=== PATIENT | female | born 1950 | race Caucasian/White ===

== ENCOUNTER 2018-04-01 08:13 | Observation (INO) | payer OTHER, SELFPAY ==
[2018-04-01] VITALS (14 sets, daily range): BP systolic 107–153; BP diastolic 50–94; PULSE 64–94; RESP 14–16; TEMP 36.3–37; O2SAT 96–99; BMI 23.1; BMI 23.2; BMI 23.6
--- NOTE | 2018-04-01 08:24 | RAD_ITS ---
STUDY: X-RAY CHEST REASON FOR EXAM: Female, 67 years old. Numbness and tingling left side of body TECHNIQUE: Single AP portable view of the chest. COMPARISON: None. FINDINGS: EKG lines overlying the chest. The lungs are clear and expanded. There is no demonstrated pleural abnormality. Normal size heart. Normal mediastinum and shey. Normal visualized pulmonary arteries. Normal visualized aortic arch and descending thoracic aorta. Normal visualized thoracic spine. Normal visualized ribs, clavicles, and shoulders. There is no demonstrated abnormality of the visualized soft tissue structures of the upper abdomen. RAD/Chest 1 View IMPRESSION: No acute cardiopulmonary disease. Electronically Signed: Keyon Benavides DO at 9:34 EDT , Service support ,
--- NOTE | 2018-04-01 08:24 | CT_ITS ---
STUDY: CT BRAIN WITHOUT CONTRAST REASON FOR EXAM: Female, 67 years old. Numbness and tingling left side of body RADIATION DOSAGE (If Supplied By Facility): CTDIvol = ( 44.99 ) mGy, DLP = ( 745.49 ) mGycm TECHNIQUE: Transaxial CT imaging of the brain was performed without administration of intravenous contrast material. Sagittal and coronal images reformatted. Individualized dose optimization techniques were used for this CT. COMPARISON: None. FINDINGS: Normal soft tissue structures. Normal calvarium. Normal size ventricles and extra-axial spaces for the patient's age. Normal white matter tracts of the cerebral hemispheres. Normal basal ganglia and thalami. Normal brainstem. Normal cerebellum. There is no intracranial hemorrhage. There are no findings of an acute ischemic infarction. Normal visualized paranasal sinuses. CT/Brain/Head without Contrast IMPRESSION: No acute intracranial process. Electronically Signed: Keyon Benavides DO at 9:42 EDT , Service support ,
--- NOTE | 2018-04-01 08:24 | EKG12_ITS ---
Test Reason : NUMBNESS Blood Pressure : / mmHG Vent. Rate : 071 BPM Atrial Rate : 071 BPM P-R Int : 140 ms QRS Dur : 074 ms QT Int : 392 ms P-R-T Axes : 067 055 046 degrees QTc Int : 425 ms Sinus rhythm with Premature supraventricular complexes Low voltage QRS Borderline ECG Confirmed by ALYSSIA NUNEZ, KAL ([id number]), editor house organ BREANNE JOSUE ([id number]) on 04/05/2018 2:16:10 PM Referred By: TIFFANIE Confirmed By:KAL CADE MD
[2018-04-01 08:48] LABS: Absolute Lymphocyte Count 3.48 X10^3/ul (0.83-4.51); Absolute Neutrophil Count 5.4 X10^3/uL (2.0-7.7); Basophil# 0.04 X10^3/uL; Basophil% 0.4 % (0-1); Eosinophil# 0.31 X10^3/uL; Eosinophils% 3.1 % (0-5); Hematocrit 42.7 % (37-47); Lymphocyte # 3.48 X10^3/ul (4.0); Lymphocyte % 34.3 % (19-41); Mean Corp Hgb Conc 32.8 g/gl (32-36); Mean Corpuscular Hgb 32.3 pg (27.0-32.0); Mean Corpuscular Volume 98.4 fL (81-99); Mean Platelet Vol. 9.4 fl (6.2-12.0); Monocyte# 0.92 X10^3/uL; Monocyte% 9.1 % (0-10); Neutrophil # 5.37 X10^3/uL (2.7-7.7); Neutrophil % 52.9 % (47-70); Platelet Count 364 K/mm3 (150-450); RBC Distribution Width CV 13.9 % (11.6-14.6); Red Blood Count 4.34 M/mm3 (4.2-5.4); White Blood Count 10.1 K/mm3 (4.4-11.0)
[2018-04-01 08:49] LABS: POSITIVE COUNT NO; POSITIVE DIFFERENTIAL NO; POSITIVE MORPHOLOGY NO
[2018-04-01 08:53] LABS: Partial Thromboplast Time 33.2 Seconds (24.1-36.2)
[2018-04-01 09:08] LABS: Anion Gap 7 (5-15); BUN 13 mg/dL (7-18); Calcium,Total 9.2 mg/dL (8.5-10.1); Chloride 109 mmol/L (98-107); EST Glomerular Filtration Rate 59 mL/min (>60); Est Glom Filt Rate - Afr Amer 71 mL/min (>60); Estimated Creatinine Clearance 47.79 ml/min; Glucose 93 mg/dL (74-106); Potassium 4.1 mmol/L (3.5-5.1); Sodium Level 143 mmol/L (136-145)
[2018-04-01 09:22] LABS: International Normalized Ratio 1.1; Prothrombin Time (Protime)PT. 13.9 SECONDS (11.7-14.9)
--- NOTE | 2018-04-01 09:34 | ED.VISSUMM ---
- ER Visit Summary Date of Service: 04/01/18 Chief Complaint: [Numbness and tingling left side of body] History of Present Illness: The patient is a 67 F [presents the emergency department with complaint of numbness and tingling to the left side of her body that she initially noticed yesterday morning. Patient states that it lasted about 20 minutes and then resolved. Patient subsequently had another episode later in the day that was brief where she felt lightheaded and had numbness and tingling to the left side of her body. Patient has had some discomfort in the neck which is been chronic over the years. Patient had mild headache yesterday that has now resolved. Patient denies any falls or head injuries. Patient denies recent illness. This morning patient woke up with numbness to the left side of her body. Patient describes numbness from the top of her head down to her toes on the left side of her body. Patient denies weakness in the extremities. Patient denies difficulty with balance. Patient denies difficulty with vision or speech.] Physical Examination: [HEENT-PERRLA, EOMI. Cranial nerves II through XII grossly intact. TMs clear. Mucous membranes moist. No adenopathy. Cardiovascular-regular rate and rhythm without murmur or ectopy Lungs-clear to auscultation, chest wall stable without crepitus or subcu emphysema Abdomen-normoactive bowel sounds, soft, nontender, no rebound or rigidity, no peritoneal signs. Neuro djjg-uyydlm-bggx and heel villarreal testing within normal limits, negative Romberg, negative pronator drift, fundi benign. NIH stroke scale was a 1 for paresthesias to the left side of the body. Extremities-intact ?4, normal range of motion, normal pulses, atraumatic] Test Results: [EKG obtained on arrival shows sinus rhythm with occasional PACs with a ventricular rate of 71 bpm. CBC with differential showed a white count of 10.1, hemoglobin 14, hematocrit 43, platelets 364. Chemistries unremarkable. Troponin was less than 0.015. Chest x-ray showed no acute disease. CT scan of the brain without contrast read by radiology as] no acute disease process Emergency Department Course and Treatment: [Patient case was discussed with neurologist Dr. Palomo Herrera. Patient will be admitted to hospitalist for further workup and evaluation of her paresthesias. During her stay in the emergency department her symptoms resolved.] Treatment Plan: [Admit] Disposition: [Admit] Impression: [TIA Paresthesias-resolved] This note was generated with [employer] dictation software. It may contain incorrect words, spelling, and punctuation that were not noted in review of the chart prior to signing ED Disposition - Plan for ED Patient: Chief Complaint: Numb/Ting Referrals: Heather Snell MD [Primary Care Provider] -
--- NOTE | 2018-04-01 09:41 | ED.DCSUM_ITS ---
- ER Visit Summary Date of Service: 04/01/18 Chief Complaint: [Numbness and tingling left side of body] History of Present Illness: The patient is a 67 F [presents the emergency department with complaint of numbness and tingling to the left side of her body that she initially noticed yesterday morning. Patient states that it lasted about 20 minutes and then resolved. Patient subsequently had another episode later in the day that was brief where she felt lightheaded and had numbness and tingling to the left side of her body. Patient has had some discomfort in the neck which is been chronic over the years. Patient had mild headache yesterday that has now resolved. Patient denies any falls or head injuries. Patient denies recent illness. This morning patient woke up with numbness to the left side of her body. Patient describes numbness from the top of her head down to her toes on the left side of her body. Patient denies weakness in the extremities. Patient denies difficulty with balance. Patient denies difficulty with vision or speech.] Physical Examination: [HEENT-PERRLA, EOMI. Cranial nerves II through XII grossly intact. TMs clear. Mucous membranes moist. No adenopathy. Cardiovascular-regular rate and rhythm without murmur or ectopy Lungs-clear to auscultation, chest wall stable without crepitus or subcu emphysema Abdomen-normoactive bowel sounds, soft, nontender, no rebound or rigidity, no peritoneal signs. Neuro dijm-gwnpdq-bltm and heel villarreal testing within normal limits, negative Romberg, negative pronator drift, fundi benign. NIH stroke scale was a 1 for paresthesias to the left side of the body. Extremities-intact ?4, normal range of motion, normal pulses, atraumatic] Test Results: [EKG obtained on arrival shows sinus rhythm with occasional PACs with a ventricular rate of 71 bpm. CBC with differential showed a white count of 10.1, hemoglobin 14, hematocrit 43, platelets 364. Chemistries unremarkable. Troponin was less than 0.015. Chest x-ray showed no acute disease. CT scan of the brain without contrast read by radiology as] no acute disease process Emergency Department Course and Treatment: [Patient case was discussed with neurologist Dr. Palomo Herrera. Patient will be admitted to hospitalist for further workup and evaluation of her paresthesias. During her stay in the emergency department her symptoms resolved.] Treatment Plan: [Admit] Disposition: [Admit] Impression: [TIA Paresthesias-resolved] This note was generated with [employer] dictation software. It may contain incorrect words, spelling, and punctuation that were not noted in review of the chart prior to signing ED Disposition - Plan for ED Patient: Chief Complaint: Numb/Ting Referrals: Heather Snell MD [Primary Care Provider] -
--- NOTE | 2018-04-01 10:33 | MRI_ITS ---
STUDY: MRI BRAIN WITHOUT CONTRAST REASON FOR EXAM: Female, 67 years old. CVA with left-sided weakness for 3 days. TECHNIQUE: Standardized multiplanar fat and water weighted pulse sequences were obtained. COMPARISON: None. FINDINGS: Normal size of the ventricles and extra-axial spaces for the patient's age. There are a limited number of small white matter hyperintensities, distributed throughout the deep white matter tracts of the cerebral hemispheres, consistent with mild chronic white matter ischemic changes. There is no evidence for recent intracranial ischemia or other cause of cytotoxic edema on diffusion weighted imaging (DWI). Normal T2* images of the brain without demonstrated susceptibility artifact. There is no demonstrated hemosiderin stain. Normal bilateral basal ganglia. Normal thalami. There is no extra-axial fluid accumulation. Normal flow voids within the major intracranial circulation suggesting patency by spin echo criteria. Normal sella turcica, pituitary gland, infundibular stalk, optic chiasm and hypothalamus. Normal tectal plate and pineal gland. Normal midbrain, sourav and medulla. Normal cerebellum. Normal basal cisterns. Normal bilateral temporal bones. Normal bilateral internal auditory canals. No demonstrated orbital abnormality, within the constraints of a routine brain study. Normal visualized paranasal sinuses. Normal calvarium and skull base. Normal visualized soft tissue structures. Normal visualized upper cervical spine. MRI/Brain without Contrast IMPRESSION: No evidence of acute intracranial bleed, mass or ischemia. Electronically Signed: Jacinto Richardson DO at 13:28 EDT , Service support ,
--- NOTE | 2018-04-01 10:33 | MRI_ITS ---
STUDY: MRA OF THE HEAD WITHOUT CONTRAST REASON FOR EXAM: Female, 67 years old. CVA with left-sided weakness. TECHNIQUE: 3-D vywf-pg-vblalo (TOF) imaging was performed with MIPs. The study was performed unenhanced. COMPARISON: None. FINDINGS: Normal bilateral petrous carotid arteries. Normal right cavernous carotid artery with a normal supraclinoid bifurcation. Normal left cavernous carotid artery with a normal supraclinoid bifurcation. Normal right A1 segments of the anterior cerebral artery. Normal left A1 segments of the anterior cerebral artery. Normal intact anterior communicating artery (ACOM). Normal bilateral A2 segments of the anterior cerebral arteries. Normal right M1 and M2 segments of the middle cerebral arteries, with a normal M1 bifurcation. Normal left M1 and M2 segments of the middle cerebral arteries, with a normal M1 bifurcation. Normal right posterior communicating artery (PCOM). 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 Normal bilateral vertebral arteries. Normal basilar artery with a normal basilar bifurcation. The visualized bilateral superior cerebellar (SCA) arteries are normal. Normal bilateral P1, P2 and visualized P3 segments of the posterior cerebral arteries. There is no demonstrated aneurysm of the [place]. There is no major vessel occlusion or hemodynamically significant stenosis. There is no demonstrated abnormality of the visualized brain. MRI/MRA Head ONLY without Contrast IMPRESSION: No evidence of significant steno-occlusive disease or aneurysm. Electronically Signed: Jacinto Richardson DO at 13:57 EDT , Service support ,
--- NOTE | 2018-04-01 10:33 | MRI_ITS ---
STUDY: MRA NECK WITHOUT CONTRAST REASON FOR EXAM: Female, 67 years old. CVA with left-sided weakness. TECHNIQUE: Source images were obtained, MIPs were performed. The study was performed unenhanced. COMPARISON: None. FINDINGS: RIGHT CAROTID ARTERIES: Normal right common carotid artery (CCA). Normal right common carotid bulb. Normal origin of the right internal carotid (ICA) artery without a hemodynamically significant stenosis. Normal visualized cervical portion of the right internal carotid artery. Normal origin of the right external carotid artery (ECA). LEFT CAROTID ARTERIES: Normal left common carotid artery (CCA). Normal left common carotid bulb. Normal origin of the left internal carotid (ICA) artery without a hemodynamically significant stenosis. Normal visualized cervical portion of the left internal carotid artery. Normal origin of the left external carotid artery (ECA). VERTEBRAL ARTERIES: There is antegrade flow within the bilateral vertebral arteries with a small right vertebral artery, and a dominant left vertebral artery. MRI/MRA Neck without Contrast IMPRESSION: No evidence of significant steno-occlusive disease or aneurysm. Electronically Signed: Jacinto Richardson DO at 14:18 EDT , Service support ,
--- NOTE | 2018-04-01 10:47 | PCM.HP.STD ---
Problem List (1) TIA (transient ischemic attack) Status: Acute (2) Tobacco dependence Status: Chronic History of Present Illness Date of Admission: 04/01/18 Chief Complaint: Left sided numbness. The patient is a 67 year old F who presents to the emergency room with left-sided numbness which began yesterday morning and has been intermittent since that time. She states she has had 3 to 4 episodes of left-sided numbness from her face to left foot which last about 20 minutes and then resolved. She denies changes in vision, slurred speech, weakness. Denies chest pain, shortness of breath. Patient states she did have an episode of brief dizziness yesterday, none further. Patient states she has chronic neck pain and headache. She is a current half pack per day smoker. She denies other past medical history. Denies other associated complaints. 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 Denies: Joint Pain, Joint Tenderness Skin: Denies: Rash, Wounds Neurological: Reports: Numbness, Tingling. Denies: Balance problems, Blurred vision, Change in Speech, Slurred speech, Focal weakness Psychiatric: Denies: Anxiety, Depression, Homicidal Ideations, Suicidal Ideations Hematologic/ Lymphatic: Denies: Easy Bruising, Easy Bleeding VTE Information - Inpt Only VTE Present on Admission: No VTE Mechan Device Prophylaxis: None VTE Pharm Prophylaxis ordered?: Yes Patient Problems: Active and Suspected Problems TIA (transient ischemic attack) (Acute) - Physical Exam General: Alert, Oriented x3, Cooperative HEENT: Atraumatic, PERRLA, EOMI, Normocephalic Neck: Supple, No JVD, Negative Carotid Bruits Lungs: Clear to auscultation, Normal air movement Cardiovascular: Regular rate, Regular Rhythm, Normal S1, Normal S2, No murmurs Abdomen: Bowel Sounds Present, Soft, Non Tender, Non-Distended Extremities: No clubbing, No cyanosis, No edema, Capillary Refill Less than 3 Seconds Skin: No rashes, No breakdown Musculoskeletal: No Tenderness to Palpation of Joints or Extremities Neurological: Cranial nerves II-XII grossly intact, Neuro grossly intact Psych/Mental Status: Normal Affect, Appropriate Vital Signs Temp Pulse Resp BP Pulse Ox 97.3 F L 71 16 130/76 H 98 04/01/18 08:14 04/01/18 10:30 04/01/18 10:30 04/01/18 10:30 04/01/18 10:30 Oxygen Delivery Method Room Air Assessment/Plan Active and Suspected Problems TIA (transient ischemic attack) (Acute) 1. Suspected TIA-symptoms resolved. CT of brain showed no acute process. EKG sinus rhythm. CBC/Chem unremarkable. Chest x-ray unremarkable. TSH and mag pending. MRI of brain, MRA of head and neck ordered and pending. Obtain echocardiogram. Obtain lipid profile in a.m. Neurology consulted. PT/OT/ST. Continue aspirin, statin. [facility] Q4 hr. 2. Elevated TSH- TSH 5.9. Check T3/T4. 3. Tobacco dependence-encourage smoking cessation. Nicotine replacement patch. DVT prophylaxis-Lovenox subcu. This patient was seen by NANCY eBck under the supervision of Dr. Grimes.
--- NOTE | 2018-04-01 10:51 | HP.PCM_ITS ---
Problem List (1) TIA (transient ischemic attack) Status: Acute (2) Tobacco dependence Status: Chronic History of Present Illness Date of Admission: 04/01/18 Chief Complaint: Left sided numbness. The patient is a 67 year old F who presents to the emergency room with left- sided numbness which began yesterday morning and has been intermittent since that time. She states she has had 3 to 4 episodes of left-sided numbness from her face to left foot which last about 20 minutes and then resolved. She denies changes in vision, slurred speech, weakness. Denies chest pain, shortness of breath. Patient states she did have an episode of brief dizziness yesterday, none further. Patient states she has chronic neck pain and headache. She is a current half pack per day smoker. She denies other past medical history. Denies other associated complaints. 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 Denies: Joint Pain, Joint Tenderness Skin: Denies: Rash, Wounds Neurological: Reports: Numbness, Tingling. Denies: Balance problems, Blurred vision, Change in Speech, Slurred speech, Focal weakness Psychiatric: Denies: Anxiety, Depression, Homicidal Ideations, Suicidal Ideations Hematologic/ Lymphatic: Denies: Easy Bruising, Easy Bleeding VTE Information - Inpt Only VTE Present on Admission: No VTE Mechan Device Prophylaxis: None VTE Pharm Prophylaxis ordered?: Yes Patient Problems: Active and Suspected Problems TIA (transient ischemic attack) (Acute) - Physical Exam General: Alert, Oriented x3, Cooperative HEENT: Atraumatic, PERRLA, EOMI, Normocephalic Neck: Supple, No JVD, Negative Carotid Bruits Lungs: Clear to auscultation, Normal air movement Cardiovascular: Regular rate, Regular Rhythm, Normal S1, Normal S2, No murmurs Abdomen: Bowel Sounds Present, Soft, Non Tender, Non-Distended Extremities: No clubbing, No cyanosis, No edema, Capillary Refill Less than 3 Seconds Skin: No rashes, No breakdown Musculoskeletal: No Tenderness to Palpation of Joints or Extremities Neurological: Cranial nerves II-XII grossly intact, Neuro grossly intact Psych/Mental Status: Normal Affect, Appropriate Vital Signs Temp Pulse Resp BP Pulse Ox 97.3 F L 71 16 130/76 H 98 04/01/18 08:14 04/01/18 10:30 04/01/18 10:30 04/01/18 10:30 04/01/18 10:30 Oxygen Delivery Method Room Air Assessment/Plan Active and Suspected Problems TIA (transient ischemic attack) (Acute) 1. Suspected TIA-symptoms resolved. CT of brain showed no acute process. EKG sinus rhythm. CBC/Chem unremarkable. Chest x-ray unremarkable. TSH and mag pending. MRI of brain, MRA of head and neck ordered and pending. Obtain echocardiogram. Obtain lipid profile in a.m. Neurology consulted. PT/OT/ST. Continue aspirin, statin. [facility] Q4 hr. 2. Elevated TSH- TSH 5.9. Check T3/T4. 3. Tobacco dependence-encourage smoking cessation. Nicotine replacement patch. DVT prophylaxis-Lovenox subcu. This patient was seen by NANCY Beck under the supervision of Dr. Grimes.
[2018-04-01 11:09] LABS: Magnesium 2.1 mg/dL (1.6-2.6)
[2018-04-01 13:30] LABS: Free T3 3.1 pg/mL (2.18-3.98)
[2018-04-01] MEDS: 0.9% NaCl Peripheral Flush Adult/Peds IV (13:39)
[2018-04-01] MEDS: Atorvastatin Calcium 80 MG Tablet PO (13:40)
[2018-04-01] MEDS: 0.9% Normal Saline 1,000 ML 100 ML IV (13:40)
[2018-04-01] MEDS: Famotidine 20 MG Tablet PO ×2 (13:41→21:38)
[2018-04-01] MEDS: Enoxaparin 40 MG/0.4 ML Syringe SC (13:41)
[2018-04-02] VITALS (7 sets, daily range): BP systolic 115–128; BP diastolic 50–63; PULSE 62–74; RESP 14–18; TEMP 36.6–36.9; O2SAT 97–98; BMI 23.6
[2018-04-02 06:59] LABS: Hematocrit 37.6 % (37-47); Hemoglobin 12.5 g/dl (12.0-15.0); Mean Corp Hgb Conc 33.2 g/gl (32-36); Mean Corpuscular Hgb 33.1 pg (27.0-32.0); Mean Corpuscular Volume 99.5 fL (81-99); Mean Platelet Vol. 10.2 fl (6.2-12.0); Platelet Count 318 K/mm3 (150-450); RBC Distribution Width CV 13.7 % (11.6-14.6); RBC Distribution Width SD 48.7 fl (35.1-43.9); Red Blood Count 3.78 M/mm3 (4.2-5.4); White Blood Count 7.9 K/mm3 (4.4-11.0)
[2018-04-02 07:14] LABS: Scan Indicated on CBC? Y/N NO
[2018-04-02 07:32] LABS: Anion Gap 6 (5-15); BUN 17 mg/dL (7-18); BUN/Creat Ratio 19.4 RATIO (10-20); Calcium,Total 8.1 mg/dL (8.5-10.1); Chloride 114 mmol/L (98-107); Cholesterol 108 mg/dL (200); Creatinine, Serum 0.88 mg/dL (0.55-1.02); EST Glomerular Filtration Rate 69 mL/min (>60); Est Glom Filt Rate - Afr Amer 83 mL/min (>60); Glucose 80 mg/dL (74-106); High Density Lipoprotein 49 mg/dL; Potassium 3.9 mmol/L (3.5-5.1); Sodium Level 142 mmol/L (136-145); Triglycerides 86 mg/dL; Very Low Density Lipoprotein 17 mg/dL (5-40)
--- NOTE | 2018-04-02 09:02 | PCM.DC ---
- Discharge Diagnoses Current Active Problems: Current Active and Chronic Problems TIA (transient ischemic attack) (Acute) Tobacco dependence (Chronic) You will use the following diet at home:: Cardiac Discharge Activity: Return to Normal Activity Call your doctor if you observe: Numbness or Tingling, Dizziness, Fainting spells, Chest pain, Increased palpitations (irregular heartbeat) Additional Instructions: You were suspected to have a TIA. You will need further follow up with neurology in 2-4 weeks. Recommend an echocardiogram as outpatient which can be ordered by your primary care physician. We also discussed obtaining further imaging of your neck as you expressed chronic neck pain. Allergies/Adverse Reactions: Allergies No Known Allergies Allergy (Verified 04/01/18 12:41) Medications to take at Discharge Cholecalciferol (VIT D3) [Vitamin D3] 3,000 unit PO DAILY 04/01/18 Ibuprofen/Pseudoephedrine HCl [Advil Cold & Sinus Caplet] 1 each PO DAILY 04/01/18 Aspirin [Aspirin, Baby] 81 mg PO DAILY@0800 #30 tab.chew 04/02/18 Atorvastatin Calcium [Lipitor] 80 mg PO DAILY #30 tab 04/02/18 The following prescriptions were given: Aspirin [Aspirin, Baby] 81 mg PO DAILY@0800 #30 tab.chew Atorvastatin Calcium [Lipitor] 80 mg PO DAILY #30 tab Primary Care Physician: Heather Snell MD [Primary Care Provider] - Please follow up with your Primary Care Physician in: 1 Week Please Follow Up With: Carol Rushing MD - [phone] When: 2-4 Weeks Proposed Discharge Date: 04/02/18
--- NOTE | 2018-04-02 09:05 | DCINST_ITS ---
- Discharge Diagnoses Current Active Problems: Current Active and Chronic Problems TIA (transient ischemic attack) (Acute) Tobacco dependence (Chronic) You will use the following diet at home:: Cardiac Discharge Activity: Return to Normal Activity Call your doctor if you observe: Numbness or Tingling, Dizziness, Fainting spells, Chest pain, Increased palpitations (irregular heartbeat) Additional Instructions: You were suspected to have a TIA. You will need further follow up with neurology in 2-4 weeks. Recommend an echocardiogram as outpatient which can be ordered by your primary care physician. We also discussed obtaining further imaging of your neck as you expressed chronic neck pain. Allergies/Adverse Reactions: Allergies No Known Allergies Allergy (Verified 04/01/18 12:41) Medications to take at Discharge Cholecalciferol (VIT D3) [Vitamin D3] 3,000 unit PO DAILY 04/01/18 Ibuprofen/Pseudoephedrine HCl [Advil Cold & Sinus Caplet] 1 each PO DAILY Aspirin [Aspirin, Baby] 81 mg PO DAILY@0800 #30 tab.chew 04/02/18 Atorvastatin Calcium [Lipitor] 80 mg PO DAILY #30 tab 04/02/18 The following prescriptions were given: Aspirin [Aspirin, Baby] 81 mg PO DAILY@0800 #30 tab.chew Atorvastatin Calcium [Lipitor] 80 mg PO DAILY #30 tab Primary Care Physician: Heather Snell MD [Primary Care Provider] - Please follow up with your Primary Care Physician in: 1 Week Please Follow Up With: Carol Rushing MD - [phone] When: 2-4 Weeks Proposed Discharge Date: 04/02/18
--- NOTE | 2018-04-02 09:06 | PCM.DC.SUM ---
Discharge Date and Diagnosis Date of Admission: 04/01/18 Date of Discharge: 04/02/18 - Primary Discharge Diagnosis Active and Suspected Problems 1. Suspected TIA - Secondary Discharge Diagnosis Chronic Problems Tobacco dependence (Chronic) Hospital Course and Treatment Imaging Results: Diagnostic Data Brain CT 04/01/18 08:24 IMPRESSION: No acute intracranial process. Electronically Signed: Keyon Benavides DO at 9:42 EDT , Service support , Chest X-Ray 04/01/18 08:24 IMPRESSION: No acute cardiopulmonary disease. Electronically Signed: Keyon Benavides DO at 9:34 EDT , Service support , Brain MRI 04/01/18 10:33 IMPRESSION: No evidence of acute intracranial bleed, mass or ischemia. Electronically Signed: Jacinto Richardson DO at 13:28 EDT , Service support , Head MRA 04/01/18 10:33 IMPRESSION: No evidence of significant steno-occlusive disease or aneurysm. Electronically Signed: Jacinto Richardson DO at 13:57 EDT , Service support , Neck MRA 04/01/18 10:33 IMPRESSION: No evidence of significant steno-occlusive disease or aneurysm. Electronically Signed: Jacinto Richardson DO at 14:18 EDT , Service support , Operations: None Procedures: None Summary of Care Provided: Patient is a 67-year-old female admitted 04/01/2018 due to left-sided numbness. Patient had multiple intermittent episodes of left-sided numbness which lasted approximately 20 minutes and then resolved. These episodes have not returned during admission. CT of brain showed no acute process. EKG sinus rhythm. CBC/Chem unremarkable. Chest x-ray unremarkable. MRI of brain normal without evidence of acute infarct. Head and neck MRA also unremarkable. Patient is suspected to have TIA. She will be discharged on aspirin and statin and follow-up with neurology in 2-4 weeks. Follow-up with primary care physician in 1 week. Echocardiogram not completed during discharge. Recommend echocardiogram as outpatient which can be ordered by primary care physician. Patient also notes she has chronic neck pain which she associates with her job. She states she has had episodes of left hand numbness when she sleeps on her neck wrong. Recommend further cervical spine imaging as ordered by primary care physician. General: Alert, Oriented x3, Cooperative HEENT: Atraumatic, PERRLA, EOMI, Normocephalic Neck: Supple, No JVD, Negative Carotid Bruits Lungs: Clear to auscultation, Normal air movement Cardiovascular: Regular rate, Regular Rhythm, Normal S1, Normal S2, No murmurs Abdomen: Bowel Sounds Present, Soft, Non Tender, Non-Distended Extremities: No clubbing, No cyanosis, No edema, Capillary Refill Less than 3 Seconds Skin: No rashes, No breakdown Musculoskeletal: No Tenderness to Palpation of Joints or Extremities Neurological: Cranial nerves II-XII grossly intact, Neuro grossly intact Psych/Mental Status: Normal Affect, Appropriate Patient seen and examined prior to discharge. Physical assessment as noted above. She denies further left-sided numbness. Neuro grossly intact. Vital signs stable. Patient is stable for discharge home with further follow-up with primary care physician and neurology. This patient was seen by NANCY Beck under the supervision of Dr. Grimes. Discharge Diet: Low fat/ Low Cholesterol Discharge Activity: Return to Normal Activity Call your doctor if you observe: Numbness or Tingling, Dizziness, Fainting spells, Chest pain, Increased palpitations (irregular heartbeat) Home Medications: Medications to take at Discharge Cholecalciferol (VIT D3) [Vitamin D3] 3,000 unit PO DAILY 04/01/18 Ibuprofen/Pseudoephedrine HCl [Advil Cold & Sinus Caplet] 1 each PO DAILY 04/01/18 Aspirin [Aspirin, Baby] 81 mg PO DAILY@0800 #30 tab.chew 04/02/18 Atorvastatin Calcium [Lipitor] 80 mg PO DAILY #30 tab 04/02/18 Following Prescrptions Were Given to Patient: Aspirin [Aspirin, Baby] 81 mg PO DAILY@0800 #30 tab.chew Atorvastatin Calcium [Lipitor] 80 mg PO DAILY #30 tab Primary Care Physician: Heather Snell MD [Primary Care Provider] - Please follow up with your Primary Care Physician in: 1 Week Please Follow Up With: Carol Rushing MD - [phone] When: 2-4 Weeks Disposition: Home Minutes spent on discharge:: 35 Patient Condition:: Stable Medical Necessity - Tobacco Use Smoking Status: Current every day smoker Tobacco Use: Cigarettes Meaningful Use Info Meaningful Use Diagnoses (Choose all that apply): None applicable
--- NOTE | 2018-04-02 09:10 | DS.PCM_ITS ---
Discharge Date and Diagnosis Date of Admission: 04/01/18 Date of Discharge: 04/02/18 - Primary Discharge Diagnosis Active and Suspected Problems 1. Suspected TIA - Secondary Discharge Diagnosis Chronic Problems Tobacco dependence (Chronic) Hospital Course and Treatment Imaging Results: Diagnostic Data Brain CT 04/01/18 08:24 IMPRESSION: No acute intracranial process. Electronically Signed: Keyon Benavides DO at 9:42 EDT , Service support , Chest X-Ray 04/01/18 08:24 IMPRESSION: No acute cardiopulmonary disease. Electronically Signed: Keyon Benavides DO at 9:34 EDT , Service support , Brain MRI 04/01/18 10:33 IMPRESSION: No evidence of acute intracranial bleed, mass or ischemia. Electronically Signed: Jacinto Richardson DO at 13:28 EDT , Service support , Head MRA 04/01/18 10:33 IMPRESSION: No evidence of significant steno-occlusive disease or aneurysm. Electronically Signed: Jacinto Richardson DO at 13:57 EDT , Service support , Neck MRA 04/01/18 10:33 IMPRESSION: No evidence of significant steno-occlusive disease or aneurysm. Electronically Signed: Jacinto Richardson DO at 14:18 EDT , Service support , Operations: None Procedures: None Summary of Care Provided: Patient is a 67-year-old female admitted 04/01/2018 due to left-sided numbness. Patient had multiple intermittent episodes of left-sided numbness which lasted approximately 20 minutes and then resolved. These episodes have not returned during admission. CT of brain showed no acute process. EKG sinus rhythm. CBC/ Chem unremarkable. Chest x-ray unremarkable. MRI of brain normal without evidence of acute infarct. Head and neck MRA also unremarkable. Patient is suspected to have TIA. She will be discharged on aspirin and statin and follow- up with neurology in 2-4 weeks. Follow-up with primary care physician in 1 week. Echocardiogram not completed during discharge. Recommend echocardiogram as outpatient which can be ordered by primary care physician. Patient also notes she has chronic neck pain which she associates with her job. She states she has had episodes of left hand numbness when she sleeps on her neck wrong. Recommend further cervical spine imaging as ordered by primary care physician. General: Alert, Oriented x3, Cooperative HEENT: Atraumatic, PERRLA, EOMI, Normocephalic Neck: Supple, No JVD, Negative Carotid Bruits Lungs: Clear to auscultation, Normal air movement Cardiovascular: Regular rate, Regular Rhythm, Normal S1, Normal S2, No murmurs Abdomen: Bowel Sounds Present, Soft, Non Tender, Non-Distended Extremities: No clubbing, No cyanosis, No edema, Capillary Refill Less than 3 Seconds Skin: No rashes, No breakdown Musculoskeletal: No Tenderness to Palpation of Joints or Extremities Neurological: Cranial nerves II-XII grossly intact, Neuro grossly intact Psych/Mental Status: Normal Affect, Appropriate Patient seen and examined prior to discharge. Physical assessment as noted above. She denies further left-sided numbness. Neuro grossly intact. Vital signs stable. Patient is stable for discharge home with further follow-up with primary care physician and neurology. This patient was seen by NANCY Beck under the supervision of Dr. Grimes. Discharge Diet: Low fat/ Low Cholesterol Discharge Activity: Return to Normal Activity Call your doctor if you observe: Numbness or Tingling, Dizziness, Fainting spells, Chest pain, Increased palpitations (irregular heartbeat) Home Medications: Medications to take at Discharge Cholecalciferol (VIT D3) [Vitamin D3] 3,000 unit PO DAILY 04/01/18 Ibuprofen/Pseudoephedrine HCl [Advil Cold & Sinus Caplet] 1 each PO DAILY Aspirin [Aspirin, Baby] 81 mg PO DAILY@0800 #30 tab.chew 04/02/18 Atorvastatin Calcium [Lipitor] 80 mg PO DAILY #30 tab 04/02/18 Following Prescrptions Were Given to Patient: Aspirin [Aspirin, Baby] 81 mg PO DAILY@0800 #30 tab.chew Atorvastatin Calcium [Lipitor] 80 mg PO DAILY #30 tab Primary Care Physician: Heather Snell MD [Primary Care Provider] - Please follow up with your Primary Care Physician in: 1 Week Please Follow Up With: Carol Rushing MD - [phone] When: 2-4 Weeks Disposition: Home Minutes spent on discharge:: 35 Patient Condition:: Stable Medical Necessity - Tobacco Use Smoking Status: Current every day smoker Tobacco Use: Cigarettes Meaningful Use Info Meaningful Use Diagnoses (Choose all that apply): None applicable
== END 2018-04-02 09:03 | disposition home or self-care (01) ==
LOC: ED 10:22 → PCU 10:29
PROVIDERS: Nurse Practitioner Family; Admitting Provider Family Medicine; Emergency Provider Emergency Medicine; Family Provider Internal Medicine; PCP Internal Medicine; Visit Provider Family Medicine
DX: R20.2 Paresthesia of skin (principal); M54.12 Radiculopathy, cervical region; F17.210 Nicotine dependence, cigarettes, uncomplicated; R20.0 Anesthesia of skin; E03.8 Other specified hypothyroidism
CPT/HCPCS: 70450; 70544; 70547; 70551; 71045; 80048; 80061; 83735; 84439; 84443; 84481; 84484; 85025; 85027; 85610; 85730; 92610; 93005; 96372; 97530; 97802; 99218; 99283; 99406; J7030; A4216; G0378

== ENCOUNTER 2022-03-24 16:25 | Emergency (ER) | payer MEDICARE, SELFPAY ==
[2022-03-24 16:27] VITALS: BP 122/81; PULSE 81; RESP 16; TEMP 36.1; O2SAT 97; BMI 23.1
--- NOTE | 2022-03-24 16:51 | ED.VIS.LOWEX ---
HPI History of Present Illness Chief Complaint: Lower Extremity Injury Detail of Chief Complaint: Left foot pain due to blunt trauma Informant: patient Occured/Mechanism Mechanism/Context: Yes injury and Yes blunt trauma Onset/Context/Timing Onset: Hours Context: Sudden Onset Timing: Continuous Quality of Pain: Dull Location: Mid left foot Current Severity: Mild Maximum Severity: Moderate Worsened by: Patient in weightbearing Relieved by: Nothing Associated Symptoms Associated Symptoms: Negative for Parasthesia, Weakness and Loss of Funtion Narrative Narrative: Patient presents after blunt trauma to left foot. Wheelbarrow tipped and landed on her foot. She presents because of pain and swelling. She localizes the pain over the tarsal bones. Tetanus Immunization: 5-10 years Prior similar symptoms: No Recent Illness/Hospitalization: No PFSH PFSH Home Medications cholecalciferol (vitamin D3) [Vitamin D3] 3,000 unit PO DAILY 04/01/18 [History Last Taken 03/31/18] pseudoephedrine-ibuprofen [Advil Cold and Sinus] 1 ea PO DAILY 04/01/18 [History Last Taken 03/30/18] aspirin 81 mg PO DAILY@0800 #30 tab.chew 04/02/18 [Rx Last Taken Unknown] atorvastatin 80 mg PO DAILY #30 tab 04/02/18 [Rx Last Taken Unknown] Allergy/AdvReac Type Severity Reaction Status Date / Time No Known Allergies Allergy Verified 03/24/22 16:26 Social History (Updated 03/24/22 @ 16:[address] Johnny Partida MD) household members: significant other Smoking Status: Current every day smoker substance use type: does not use ROS ROS ED Musculoskeletal Musculoskeletal: Denies arthralgias, back pain, myalgias or neck pain Integumentary Denies abscess, Abrasions or rash Neurologic Neurologic: Denies paresthesias or weakness Hematologic/Lymphatic Hematologic/Lymphatic: Denies easy bleeding or easy bruising EXAM Physical Exam Const Vital Signs: 03/24/22 16:27 Temperature 96.9 F L Temperature Source Temporal Pulse Rate 81 Respiratory Rate 16 Blood Pressure 122/81 H Blood Pressure Mean 94 Pulse Ox 97 Oxygen Delivery Method Room Air Positive well nourished and well developed General Appearance ED: well developed and NAD HEENT Reports moist mucous membranes normocephalic and atraumatic; Negative for trauma or tenderness Extremity full ROM; Negative for normal to inspection Extremity Narrative: There is soft tissue swelling and pain outpatient over the tarsal bones. There is no pain the patient of the lateral medial malleolus. Is no pain the patient of the base of the fifth metatarsal. There is no neurovascular findings. General Extremety ED: Yes weight-bearing difficulty; Negative for cyanosis or edema General Extremity: weight-bearing difficulty; Negative for cyanosis or edema Neuro oriented x3 and CN's II-XII intact bilaterally Sensorium / Orientation: alert MDM MDM MDM Narrative Medical decision making narrative: Will obtain x-ray to rule out contusion versus fracture. Radiography Diagnostic Testing: Clinical Impression(s) from Imaging Studies Foot X-Ray 03/24/22 16:55 IMPRESSION: Negative left foot x-rays. Electronically Signed: Jeremias Montana MD at 17:12 EDT , Three-view x-ray of the left foot was independently reviewed and interpreted by me as negative for fracture, subluxation or dislocation. There is no evidence of foreign body. There is no soft tissue swelling noted. Discharge Plan Triage Chief Complaint: Lower Extremity Injury ED Provider: Johnny Partida Dx/Rx/DC Orders Clinical Impression: Contusion of left foot, initial encounter Instructions: ED Crush Injury, Foot/Toe Prescriptions: No Action pseudoephedrine-ibuprofen [Advil Cold and Sinus] 1 EACH tablet 1 ea PO DAILY RF: 0 cholecalciferol (vitamin D3) [Vitamin D3] 1,000 UNIT tablet 3,000 unit PO DAILY RF: 0 atorvastatin 80 MG tablet 80 mg PO DAILY Qty: 30 RF: 0 aspirin 81 MG tablet,chewable 81 mg PO DAILY@0800 Qty: 30 RF: 0 Primary Care Provider: Heather Snell Referrals: Heather Snell MD [Primary Care Provider] - 1 Week if not improving Activity Restrictions/Additional Instructions: 1. Apply ice 6-8 times a day. 2. You may take either Tylenol or ibuprofen for your pain. Disposition Disposition: Home, Self Care
--- NOTE | 2022-03-24 16:55 | RAD_ITS ---
EXAM: XR LEFT FOOT COMPLETE, 3 OR MORE VIEWS CLINICAL INDICATION: left foot injury TECHNIQUE: Frontal, lateral and oblique views of the left foot. This report was created using [employer] report generation technology. COMPARISON: None. FINDINGS: BONES/JOINTS: Unremarkable. No acute fracture. No subluxation. Normal alignment. Preservation of the joint space. No sclerotic or destructive changes observed. SOFT TISSUES: Unremarkable. No soft tissue swelling or gas. No radiopaque foreign body. RAD/Foot min 3 Views IMPRESSION: Negative left foot x-rays. Electronically Signed: Jeremias Montana MD at 17:12 EDT ,
== END 2022-03-24 17:57 | disposition home or self-care (01) ==
PROVIDERS: Emergency Provider Emergency Medicine; PCP Internal Medicine; Visit Provider Emergency Medicine
DX: S90.32XA Contusion of left foot, initial encounter (principal); W20.8XXA Other cause of strike by thrown, projected or falling object, initial encounter; F17.200 Nicotine dependence, unspecified, uncomplicated; Z79.82 Long term (current) use of aspirin; Z79.899 Other long term (current) drug therapy
CPT/HCPCS: 73630; 99282

== ENCOUNTER → 2022-07-07 | Outpatient (CLI) | payer MEDICARE, SELFPAY ==
--- NOTE | 2022-07-07 09:37 | BD_ITS ---
STUDY: DUAL ENERGY X-RAY ABSORPTIOMETRY / DXA REASON FOR EXAM: Female, 71 years old. Z780. Patient is postmenopausal. TECHNIQUE: Bone Mineral Density (BMD) measurements of lumbar spine and bilateral hips were obtained. COMPARISON: None. FINDINGS: Lumbar Spine (L1-L4): g/cm2 (0.873) / T-score (-1.5) / Z-score (0.7) Findings are suggestive of osteopenia with a low fracture risk. Left Femur Total: g/cm2 (0.633) / T-score (-2.5) / Z-score (-1.0) Left Femoral Neck: g/cm2 (0.549) / T-score (-2.7) / Z-score (-0.8) Right Femur Total: g/cm2 (0.653) / T-score (-2.4) / Z-score (-0.8) Right Femoral Neck: g/cm2 (0.556) / T-score (-2.6) / Z-score (-0.8) BD/Dexa Bone Density Study IMPRESSION: The patient is considered osteoporotic as outlined below according to World [employer] Organization (WHO) criteria with a high fracture risk. Reference Information: The T-score is the number of standard deviations above or below the standard which is normal for young adults at their peak bone mineral density. The World Health Organization (WHO) interprets the T-scores as follows: Above -1 Normal bone density Between -1 and -2.5 Osteopenia Equal to / or below -2.5 Osteoporosis As a practical clinical guideline, osteopenia may be graded as follows: Mild -1 through -1.5 Moderate -1.6 through -2.0 Severe -2.1 through -2.4 The Z-score is the number of standard deviations above or below age-matched controls. A Z-score of less than -1.5 would be considered abnormal. References: 1. NIH Osteoporosis and Related Bone Diseases www osteo.org 2. International Society for Clinical Densitometry www iscd.org 3. National Osteoporosis Foundation www nof.org Electronically Signed: Tong Jean MD at 13:20 EDT ,
== END | disposition home or self-care (01) ==
LOC: OPBD 09:33
PROVIDERS: PCP Internal Medicine; Visit Provider Internal Medicine
DX: Z78.0 Asymptomatic menopausal state (principal)
CPT/HCPCS: 77080

== ENCOUNTER → 2024-08-07 | Outpatient (CLI) | payer MEDICARE, SELFPAY ==
--- NOTE | 2024-08-07 15:59 | BD_ITS ---
STUDY: DUAL ENERGY X-RAY ABSORPTIOMETRY / DXA REASON FOR EXAM: Female, 74 years old. Z780 TECHNIQUE: Bone Mineral Density (BMD) measurements of lumbar spine and bilateral hips were obtained. COMPARISON: Comparison is made with prior study dated July 07, 2022. FINDINGS: Lumbar Spine (L1-L4): g/cm2 (0.914) / T-score (-1.2) / Z-score (1.1) Findings are suggestive of osteopenia with a low fracture risk. Left Femur Total: g/cm2 (0.590) / T-score (-2.9) / Z-score (-1.2) Left Femoral Neck: g/cm2 (0.483) / T-score (-3.3) / Z-score (-1.3) Right Femur Total: g/cm2 (0.640) / T-score (-2.5) / Z-score (-0.8) Right Femoral Neck: g/cm2 (0.512) / T-score (-3.0) / Z-score (-1.1) The T-Scores on the most recent prior examination were: Lumbar Spine (L1-L4): There has been improvement of bone density since the previous examination. Left Femur Total: which represents a worsening of 6.7%. Right Femur Total: which represents a worsening of 1.9%. BD/Dexa Bone Density Study IMPRESSION: The patient is considered osteoporotic as outlined below according to World [employer] Organization (WHO) criteria with a high fracture risk. There has been worsening of bone density since the previous examination. Reference Information: The T-score is the number of standard deviations above or below the standard which is normal for young adults at their peak bone mineral density. The World Health Organization (WHO) interprets the T-scores as follows: Above -1 Normal bone density Between -1 and -2.5 Osteopenia Equal to / or below -2.5 Osteoporosis As a practical clinical guideline, osteopenia may be graded as follows: Mild -1 through -1.5 Moderate -1.6 through -2.0 Severe -2.1 through -2.4 The Z-score is the number of standard deviations above or below age-matched controls. A Z-score of less than -1.5 would be considered abnormal. References: 1. NIH Osteoporosis and Related Bone Diseases www osteo.org 2. International Society for Clinical Densitometry www iscd.org 3. National Osteoporosis Foundation www nof.org Electronically Signed: Tong Jean MD at 14:08 EDT ,
== END | disposition home or self-care (01) ==
LOC: OPBD 15:57
PROVIDERS: PCP Internal Medicine; Referring Provider Internal Medicine; Visit Provider Internal Medicine
DX: Z13.820 Encounter for screening for osteoporosis (principal); Z78.0 Asymptomatic menopausal state
CPT/HCPCS: 77080